=== PATIENT | female | born 1970 | race Caucasian/White ===

== ENCOUNTER → 2017-03-14 | Outpatient (CLI) | payer OTHER ==
--- NOTE | 2017-03-14 19:24 | Diagnostic Imaging Report ---
EXAMINATION: Multiplanar, multisequence MRI of the thoracic spine was performed without intravenous contrast. INDICATION: Back pain. FINDINGS: The alignment of the thoracic spine is satisfactory. The vertebral body heights are preserved. No significant disc height loss or disc desiccation is seen. There is mild marrow signal edema along the anterior aspect of the endplates at T12/L1 level is compatible with mild reactive degenerative change. No significant disc herniation is seen at any level. There is no spinal canal stenosis seen at any level. The spinal cord has normal caliber, contour and signal. The neural foramina are patent, bilaterally. IMPRESSION: No significant abnormality. Dictated by: Dictated on workstation # [id number]
== END ==
LOC: EDBD 14:00 → RAD 14:14
PROVIDERS: ATTEND Orthopaedic Surgery Orthopaedic Surgery of the Spine
DX: M54.5 Low back pain (principal)
CPT/HCPCS: 72146